=== PATIENT | female | born 1950 | race American Indian/Alaskan Native ===

== ENCOUNTER 2017-03-17 15:25 | Outpatient (CLI) | payer MEDICARE, OTHER | END 2017-03-17 15:26 | disposition home or self-care (01) | LOC: LABHHL 15:25 | PROVIDERS: ATTEND Surgery | DX: D24.1 Benign neoplasm of right breast (principal); N60.81 Other benign mammary dysplasias of right breast | CPT/HCPCS: 88305 ==

== ENCOUNTER 2021-02-25 10:52 | Outpatient (CLI) | payer MEDICARE ==
--- NOTE | 2021-02-25 12:45 | Mammography Report ---
DIGITAL SCREENING MAMMOGRAM WITH CAD, 02/25/2021 CLINICAL INFORMATION / INDICATION: Routine screening mammography. SCREENING MAMMO Z12.31 TECHNIQUE: Digital bilateral 2D mammography was obtained in the craniocaudal and mediolateral obliqu e projections. This examination was interpreted with the benefit of Computer-Aided Detection analysis . COMPARISON: 01/06/2017 through 02/08/2020. FINDINGS: Breast Density: There are scattered areas of fibroglandular density. No dominant mass, suspicious calcifications, or architectural distortion in either breast. Benign-appearing calcifications in the left are stable. A right biopsy clip is again noted. IMPRESSION: No mammographic evidence of malignancy. Follow up recommendation: Routine yearly BI-RADS Category 2: Benign. A "normal" or negative report should not discourage follow up or biopsy of a clinically significant f inding. A written summary of these findings will be mailed to the patient. The patient will be entered into a mammography reporting system which will generate a reminder letter for the patient's next appointmen t at the appropriate interval. The [employer] recommends yearly mammograms starting at age 40 and continuing as l ajay as a woman is in good health. Breast MRI is recommended for women with an approximate 20-25% or greater lifetime risk of breast cancer, including women with a strong family history of breast or ova ruthie cancer or who have been treated for Hodgkin's disease. Signer Name: Wang Huynh MD Signed: 02/25/2021 12:41 PM Workstation Name: [id number]
== END 2021-02-25 10:53 | disposition home or self-care (01) ==
LOC: SPVWC 10:52
PROVIDERS: ATTEND Surgery
DX: Z12.31 Encounter for screening mammogram for malignant neoplasm of breast (principal)
CPT/HCPCS: 77067

== ENCOUNTER 2021-06-25 16:33 | Outpatient (CLI) | payer MEDICARE ==
[2021-06-25 17:00] LABS: Bacteria,Urine 1+ /HPF (Negative); Basophils # (Auto) 0.1 K/mm3 (0.0-0.1); Basophils % (Auto) 1.1 % (0.0-1.8); Bilirubin,Urine NEG (Negative); Blood,Urine SM (Negative); Color,Urine Yellow (Yellow); Eosinophils # (Auto) 0.3 K/mm3 (0.0-0.4); Eosinophils % (Auto) 4.6 % (0.0-4.3); Hematocrit 47.9 % (30.3-42.9); Hemoglobin 15.4 gm/dl (10.1-14.3); Lymphocytes # (Auto) 3.1 K/mm3 (1.2-5.4); Lymphocytes % (Auto) 44.8 % (13.4-35.0); Mean Corpuscular HGB Conc 32 % (30-34); Mean Corpuscular Volume 87 fl (79-97); Monocytes # (Auto) 0.8 K/mm3 (0.0-0.8); Mucus,Urine FEW /HPF; Platelet Count 256 K/mm3 (140-440); Red Cell Distribution Width 15.4 % (13.2-15.2); Urobilinogen,Urine < 2.0 mg/dL (<2.0)
[2021-06-25 17:03] LABS: RBC,Urine > 182.0 /HPF (0.0-6.0)
[2021-06-25 17:32] LABS: Albumin 4.7 g/dL (3.9-5); BUN/Creatinine Ratio 18; Blood Urea Nitrogen 16 mg/dL (7-17); Calcium 11.3 mg/dL (8.4-10.2); Hemolysis Index 2; Uric Acid 6.6 mg/dL (3.5-7.6)
[2021-06-25 18:13] LABS: Hepatitis B Surface Antigen Non-Reactive (Negative); Hepatitis C Virus Antibody Non-Reactive (NonReactive)
[2021-06-25 20:38] LABS: Creatinine,Urine 190.3 mg/dL (0.1-20.0); Protein/Creatinine Ratio,Urine 0.34
[2021-07-01 06:17] LABS: ANA Screen, IFA Negative (Negative)
[2021-07-01 11:09] LABS: Myeloperoxidase Antibody <1.0 AI (<1.0)
[2021-07-05 12:51] LABS: Aldo/Plasma Renin Act Ratio 3.6 Ratio (0.9-28.9)
== END 2021-06-25 16:34 | disposition home or self-care (01) ==
LOC: LAB 16:33
PROVIDERS: ATTEND Internal Medicine Nephrology
DX: I10 Essential (primary) hypertension (principal); N94.4 Primary dysmenorrhea; R94.4 Abnormal results of kidney function studies; E08.29 Diabetes mellitus due to underlying condition with other diabetic kidney complication; E66.9 Obesity, unspecified; R60.9 Edema, unspecified; E78.5 Hyperlipidemia, unspecified; E83.52 Hypercalcemia
CPT/HCPCS: 36415; 80048; 80074; 81001; 82040; 82043; 82088; 82570; 84100; 84156; 84550; 85025; 86021; 86038; 86334; 87086